=== PATIENT | male | born 1990 | race Two or more races ===

== ENCOUNTER 2024-03-21 11:02 | Inpatient (IN) | payer MEDICAID, OTHER ==
[~2024-03-21] VITALS: Ht 182.9 cm; Wt 107.0 kg
[2024-03-21 12:16] LABS: Basophils # (auto) 0 10 ^3/uL (0-0.2); Basophils % (auto) 0.2 % (0.0-2.0); Eosinophils # (auto) 0.1 10 ^3/uL (0-0.8); Eosinophils % (auto) 0.3 % (0.0-7.0); Hematocrit 49.2 % (41.0-53.0); Hemoglobin 16.7 g/dL (13.5-17.5); Lymphocytes # (auto) 0.9 10 ^3/uL (0.4-5.4); Lymphocytes % (auto) 5.1 % (10.0-50.0); Mean Corpuscular Hemoglobin 28.1 pg (28.0-32.0); Mean Corpuscular Volume 82.8 fL (80.0-100.0); Monocytes # (auto) 0.9 10 ^3/uL (0-1.3); Monocytes % (auto) 5.2 % (0.0-12.0); Neutrophils % (auto) 89.2 % (37.0-80.0); Red Blood Cells 5.93 10^6/uL (4.5-5.90)
[2024-03-21 12:42] LABS: Alanine Aminotransferase 29 U/L (7-40); Albumin 5.1 g/dL (3.2-4.8); Alkaline Phosphatase 123 U/L (46-116); Anion Gap 12 (5-15); Aspartate Aminotransferase 19 U/L (13-40); BUN/Creatinine Ratio 12.7 (10.0-20.0); Bilirubin, Total 0.7 mg/dL (0.2-1.0); Blood Urea Nitrogen 18 mg/dL (9-23); Calcium 10.5 mg/dL (8.7-10.4); Carbon Dioxide 24 mmol/L (20-30); Chloride 104 mmol/L (98-107); Glucose 145 mg/dL (74-106); Potassium 3.4 mmol/L (3.5-5.1); Sodium 140 mmol/L (136-145)
[2024-03-21 12:43] LABS: Total Protein 8.9 g/dL (5.7-8.2)
[2024-03-21] MEDS: ONDANSETRON HCL 4 MG/2 ML VIAL IV ONE (12:46)
[2024-03-21] MEDS: SODIUM CHLORIDE 0.9% 1,000 ML IV ONE (12:47)
[2024-03-21] MEDS: hydrALAZINE HCL 20 MG/ML VL IV ONE (12:47)
[2024-03-21] MEDS: PENICILLIN G POT 5MIL/D5 50ML 50 ML IV ONE (12:56)
[2024-03-21] MEDS: CHOLESTYRAMINE 4 GM POWDER PO ONE (13:58)
[2024-03-21] MEDS ORDERED: MORPHINE SULFATE INJ 2 MG/ml SYRG IV PRN (15:00)
[2024-03-21] MEDS ORDERED: ONDANSETRON HCL 4 MG/2 ML VIAL IV PRN (15:00)
[2024-03-21] MEDS ORDERED: ACETAMINOPHEN 325 MG TAB PO PRN (15:00)
[2024-03-21] MEDS ORDERED: METOCLOPRAMIDE HCL 5MG/ml INJ 2ml VIAL IV PRN (15:00)
[2024-03-21] MEDS ORDERED: DOCUSATE SOD 100 MG CAP PO PRN (15:00)
[2024-03-21] MEDS: MORPHINE SULFATE INJ 2 MG/ml SYRG IV ONE (15:00)
[2024-03-21] MEDS ORDERED: HYDROcodone-ACET 5/325MG TAB PO PRN (15:00)
[2024-03-21] MEDS: cefTRIAXone 1GM/50ML D5W 50 ML IV SCH (15:57)
[2024-03-21] MEDS: metroNIDAZOLE 500MG/100ML 100 ML IV SCH (15:58)
[2024-03-21] MEDS: PANTOPRAZOLE 40 MG/10 ML VIAL INJ IV SCH (15:58)
[2024-03-21] MEDS ORDERED: hydrALAZINE HCL 20 MG/ML VL IV PRN (16:00)
[2024-03-21] MEDS: LACTATED RINGER'S 2,000 ML IV ONE (16:25)
[2024-03-21 16:47] LABS: Urine Bacteria None Seen /hpf (None Seen)
[2024-03-21 17:01] LABS: Urine Blood 1+ /uL (Negative); Urine Clarity Turbid (Clear); Urine Color Yellow (Yellow); Urine Hyaline Cast MANY /lpf (0 - 2); Urine Mucus FEW (None Seen); Urine Protein, UAD 1+ (Negative); Urine Specific Gravity 1.029 (1.001-1.035); Urine Urobilinogen Normal (Negative); Urine WBC 11 /hpf (0 - 3); Urine pH 5.5 (5.0-9.0)
[2024-03-21 17:16] LABS: Amphetamine Screen, Urine Neg (NEGATIVE); Barbiturate Scree,Urine Neg (NEGATIVE); Benzodiazephine Screen, Urine Neg (NEGATIVE); Cannabinoid Screen, Urine Neg (NEGATIVE); Cocaine Screen, Urine Neg (NEGATIVE); Opiate Scree,Urine Neg (NEGATIVE); Phencyclidine Screen, Urine Neg (NEGATIVE)
[2024-03-21] MEDS: LACTATED RINGER'S 1,000 ML IV ONE (17:33)
[2024-03-21] MEDS: LABETALOL HCL 20 MG/4 ML VL IV PRN (17:43)
[2024-03-21 18:42] VITALS: PULSE 111
[2024-03-21 20:00] VITALS: PULSE 109
[2024-03-21 21:00] VITALS: BP 140/92; PULSE 103; RESP 20; TEMP 98; O2SAT 96
[2024-03-21] MEDS: SODIUM CHLOR 0.9% PF (SALINE LOCK) 10ML VIAL/SYR IV SCH (22:42)
[2024-03-22] VITALS (9 sets, daily range): BP systolic 122–166; BP diastolic 75–98; PULSE 99–119; RESP 18–21; TEMP 97.4–98.9; O2SAT 95–97
[2024-03-22] MEDS ORDERED: POTASSIUM EFFERVESENT TAB 25 MEQ GT ONE (08:45)
[2024-03-22] MEDS: POTASSIUM EFFERVESENT TAB 25 MEQ PO ONE (09:35)
[2024-03-22 12:25] LABS: Chloride 108 mmol/L (98-107); Potassium 3.5 mmol/L (3.5-5.1)
[2024-03-22 12:26] LABS: Basophils # (auto) 0.1 10 ^3/uL (0-0.2); Basophils % (auto) 0.5 % (0.0-2.0); Eosinophils # (auto) 0.2 10 ^3/uL (0-0.8); Eosinophils % (auto) 1.8 % (0.0-7.0); Hematocrit 38.4 % (41.0-53.0); Lymphocytes # (auto) 1.8 10 ^3/uL (0.4-5.4); Lymphocytes % (auto) 17.6 % (10.0-50.0); Mean Corpuscular Hemoglobin 28.1 pg (28.0-32.0); Mean Corpuscular Volume 82.7 fL (80.0-100.0); Monocytes # (auto) 0.5 10 ^3/uL (0-1.3); Monocytes % (auto) 5.2 % (0.0-12.0); Neutrophils # (auto) 7.8 10 ^3/uL (1.6-8.6); Neutrophils % (auto) 74.9 % (37.0-80.0); Nucleated Red Blood Cells % 0.1 %; Red Blood Cells 4.64 10^6/uL (4.5-5.90); Sodium 141 mmol/L (136-145); White Blood Cell 10.4 10^3/uL (4.4-10.8)
[2024-03-22 12:27] LABS: Anion Gap 6 (5-15); Calcium 8.7 mg/dL (8.7-10.4); Carbon Dioxide 27 mmol/L (20-30)
[2024-03-22 12:32] LABS: Blood Urea Nitrogen 17 mg/dL (9-23); Glucose 108 mg/dL (74-106)
[2024-03-23] VITALS (9 sets, daily range): BP systolic 142–188; BP diastolic 87–119; PULSE 96–128; RESP 17–22; TEMP 97.8–99.1; O2SAT 93–97
[2024-03-23 06:52] LABS: Basophils # (auto) 0 10 ^3/uL (0-0.2); Basophils % (auto) 0.5 % (0.0-2.0); Eosinophils # (auto) 0.4 10 ^3/uL (0-0.8); Eosinophils % (auto) 4.3 % (0.0-7.0); Hematocrit 38.9 % (41.0-53.0); Hemoglobin 13.1 g/dL (13.5-17.5); Lymphocytes # (auto) 1.6 10 ^3/uL (0.4-5.4); Lymphocytes % (auto) 18.2 % (10.0-50.0); Mean Corpuscular Hgb Conc. 33.6 g/dL (32.0-36.0); Mean Corpuscular Volume 83.2 fL (80.0-100.0); Monocytes # (auto) 0.5 10 ^3/uL (0-1.3); Monocytes % (auto) 5.8 % (0.0-12.0); Neutrophils # (auto) 6.1 10 ^3/uL (1.6-8.6); Neutrophils % (auto) 71.2 % (37.0-80.0); Red Blood Cells 4.67 10^6/uL (4.5-5.90); White Blood Cell 8.6 10^3/uL (4.4-10.8)
[2024-03-23] MEDS: hydrALAZINE HCL 20 MG/ML VL IV PRN (07:10)
[2024-03-23 07:19] LABS: Alanine Aminotransferase 22 U/L (7-40); Alkaline Phosphatase 59 U/L (46-116); Anion Gap 6 (5-15); Calcium 8.7 mg/dL (8.7-10.4); Carbon Dioxide 27 mmol/L (20-30); Chloride 107 mmol/L (98-107); Potassium 3.5 mmol/L (3.5-5.1); Sodium 140 mmol/L (136-145)
[2024-03-23 07:20] LABS: BUN/Creatinine Ratio 13.2 (10.0-20.0); Blood Urea Nitrogen 14 mg/dL (9-23); Glucose 108 mg/dL (74-106)
[2024-03-23 07:22] LABS: Albumin 3.7 g/dL (3.2-4.8); Aspartate Aminotransferase 15 U/L (13-40); Bilirubin, Total 0.3 mg/dL (0.2-1.0); Total Protein 6.6 g/dL (5.7-8.2)
[2024-03-23] MEDS ORDERED: LISI20TA56 PO (09:39)
[2024-03-23] MEDS: hydrALAZINE HCL 20 MG/ML VL IV ONE (12:06)
[2024-03-23] MEDS: LISINOPRIL 5 MG TAB PO ONE (12:06)
[2024-03-24 05:00] VITALS: BP 203/115; PULSE 107; PULSE 20; RESP 20; TEMP 107; O2SAT 97
[2024-03-24 08:00] VITALS: BP 167/93; PULSE 106; PULSE 110; RESP 20; TEMP 97.6; O2SAT 98
[2024-03-24 12:00] VITALS: BP 150/87; PULSE 100; RESP 21; TEMP 97.6; O2SAT 96
[2024-03-24 16:15] VITALS: BP 142/77; PULSE 87
[2024-03-24] MEDS: LISINOPRIL 5 MG TAB PO ONE (17:00)
[2024-03-25] MEDS ORDERED: LISINOPRIL 5 MG TAB PO SCH (10:00)
== END 2024-03-24 19:55 | disposition home or self-care (01) | DRG 720 ==
LOC: ER 11:02 → EDBD 11:02 → TELE 14:55 → TELE-WESTW 18:17
PROVIDERS: ADMIT Internal Medicine Pulmonary Disease; ATTEND Internal Medicine Pulmonary Disease
DX: A41.89 Other specified sepsis (principal); G93.41 Metabolic encephalopathy; A08.4 Viral intestinal infection, unspecified; A05.1 Botulism food poisoning; N17.9 Acute kidney failure, unspecified; I10 Essential (primary) hypertension; I16.1 Hypertensive emergency; Z59.00 Homelessness unspecified; Z79.899 Other long term (current) drug therapy
CPT/HCPCS: 36415; 70450; 76775; 80048; 80053; 80307; 80320; 80329; 81001; 82550; 83605; 85025; 87040; 87045; 87081; 87427; 87493; 97163; G0378; J2405; J2470; J2540; J3490